=== PATIENT | female | born 1955 | race Caucasian/White ===

== ENCOUNTER 2022-02-08 11:18 | Day surgery (SDC) | payer OTHER ==
--- NOTE | 2022-02-08 10:16 | HP ---
DATE OF SURGERY: 02/08/2022 HISTORY OF PRESENT ILLNESS: The patient is a 66-year-old with no bloody stools. No change in bowel movements. No pain. She needs follow up colonoscopy. Family history negative for colon cancer. History of small polyp in the past. She is in need of follow up screening colonoscopy. PAST MEDICAL HISTORY: Hypothyroid disease, hyperlipidemia. PAST SURGICAL HISTORY: Endoscopy. Hysterectomy. Last colonoscopy six years ago. MEDICATIONS: Zocor, Synthroid. ALLERGIES: NKDA. FAMILY HISTORY: Negative for colon cancer. SOCIAL HISTORY: No smoking or alcohol abuse. REVIEW OF SYSTEMS: Fourteen systems reviewed. No chest pain or palpitations. Other systems negative or noncontributory as above and per preadmission questionnaire. PHYSICAL EXAMINATION: GENERAL: No acute distress. HEENT: Sclerae nonicteric. NECK: No JVD. CHEST: Clear to auscultation. CVS: Regular rate and rhythm. ABDOMEN: Soft. No peritoneal signs. EXTREMITIES: No significant edema. NEURO: Alert, oriented, moving extremities symmetrically. RECTAL: Deferred timed to endoscopy exam. PSYCH: Appropriate mood and affect. IMPRESSION: Prior history of polyps, in need of follow up screening colonoscopy as last colonoscopy was about six years ago. I feel she is a candidate. She was shown the risk sheet and explained the procedure in detail but not limited to bleeding or infection, risk of bowel injury or perforation possibly requiring open procedure, risk of missed or nondiagnosis or incomplete exam possibly requiring barium enema, other studies or procedures, general risk of anesthesia or sedation, risk of bowel prep but not limited to. Will proceed with outpatient follow up screening colonoscopy under MAC anesthesia.
[2022-02-08] MEDS ORDERED: Lactated Ringers 1,000 ML IV SCH (12:00)
[2022-02-08 13:54] VITALS: O2SAT 98
[2022-02-08 14:01] VITALS: BP 151/90; PULSE 66
--- NOTE | 2022-02-09 08:59 | OP ---
SURGERY DATE/TIME: 02/08/2022 1245 PREOPERATIVE DIAGNOSIS: History of polyp, need for follow up screening colonoscopy. POSTOPERATIVE DIAGNOSES: 1) ASA Class II. 2) Fair but slightly limited bowel prep. 3) Tortuous colon. 4) Small polyps, early poly versus hyperplastic lesion cecum, sigmoid and rectum. 5) Withdrawal time about seven minutes. PROCEDURES: 1) Colonoscopy to cecum. 2) Hot biopsy removal of small, very tiny early polyp versus hyperplastic lesion in the cecum. 3) Hot biopsy of small vague raised area versus hyperplasia, versus early polyp sigmoid colon. 4) Hot biopsy polypectomy small early rectal polyp versus hyperplastic lesion removed with hot biopsy forceps. SURGEON: Dr. Aldair Ricardo. ANESTHESIA: MAC. ESTIMATED BLOOD LOSS: Minimal. INDICATIONS: As noted above. Risks and benefits explained in detail but not limited to and consent obtained. DESCRIPTION OF PROCEDURE AND FINDINGS: The patient is taken to the endoscopy room. MAC anesthesia induced. After official time out and no disagreement with planned procedure, digital rectal exam did not reveal any rectal masses. There were some problems with initial scope requiring switching of the scope. The insufflation was much better on this scope. After official time out and no disagreement with planned procedure, proceeded to advance the scope up the tortuous sigmoid, descending, transverse and ascending colon. With external pressure to the cecum, appendiceal orifice and valve well visualized. Prep overall was fair but on the limited side. There was some liquidy semisolid stool limiting the exam for very small lesions. Small early 1 mm to 1.5 mm early polyp versus hyperplastic lesion removed with hot biopsy forceps with brief bursts of cautery. Good hemostasis was noted. The scope is slowly and carefully withdrawn over the next seven minutes suctioning and irrigating out the liquidy semisolid stool as well as possible. There were no signs of any large polyps, masses or obstructing lesions. She did have some mild diverticulosis otherwise small vague raised area versus early polyp or hyperplastic lesion removed with hot biopsy forceps in the sigmoid colon. The scope is then pulled back to the rectum. A 1.5 mm early polyp versus hyperplastic lesion removed with hot biopsy forceps with brief bursts of cautery. Good hemostasis was noted. There were no signs of any large polyps, masses or obstructing lesions. Given her prep quality and small early polyps versus hyperplastic lesion. If the path is benign, she might benefit from follow up in five years.
== END 2022-02-08 14:06 | disposition home or self-care (01) ==
LOC: SDC 11:18
PROVIDERS: ATTEND Surgery
DX: Z12.11 Encounter for screening for malignant neoplasm of colon (principal); Z09 Encounter for follow-up examination after completed treatment for conditions other than malignant neoplasm; K63.5 Polyp of colon; K62.1 Rectal polyp; K57.30 Diverticulosis of large intestine without perforation or abscess without bleeding; Z86.010 Personal history of colon polyps

== ENCOUNTER 2025-08-02 09:31 | Emergency (ER) | payer MEDICARE ==
--- NOTE | 2025-08-02 09:55 | ERPHSYRPT ---
- History of Present Illness Time Seen by Provider: 08/02/25 09:55 Source: patient, family Exam Limitations: no limitations Physician History: This is a 70-year-old overweight white female patient brought in by private vehicle accompanied by her spouse and is a patient of Dr. Royal with a complaint of right sided lower back pain. 2 days ago, the patient was bending and twisting and did feel a pull in this area. She did not fall or have any acute trauma. Patient has a history of sciatica in the past. Patient states it is persistent pain and pulling and tightening in that same area with intermittent muscle spasms. Patient has no urinary tract infection symptoms. She denies hematuria. She denies abdominal pain and she denies dysuria. There is no pain over her spine or in the midline. Patient has a history of hyperlipidemia and hypothyroidism. Patient denies urinary or bowel incontinence. She has no constipation. She has no numbness in her feet. Patient refuses any narcotics. She states that she prefers not to have any radiographic studies performed. Timing/Duration: day(s) (2) Method of Injury: bending, lifting, twisted Quality: sharp, stabbing, other (Spasm right lower back) Back Pain Location: lumbar spine, paraspinous muscles Back Pain Radiation: buttocks (Right side) Severity of Pain-Max: moderate Modifying Factors: Improves With: movement Associated Symptoms: denies symptoms Previous symptoms: same symptoms as today (But it has been a while) Allergies/Adverse Reactions: No Known Drug Allergies Allergy (Verified 08/02/25 09:55) Home Medications: Levothyroxine Sodium 150 Mcg [Synthroid 150 Mcg] 150 mcg PO DAILY 02/03/22 [History] Simvastatin 10 mg [Zocor 10MG] 10 mg PO DAILY 02/03/22 [History] Travel Risk - International Travel Have you traveled outside of the country in past 3 weeks: No - Emerging Infectious Disease Are you exhibiting symptoms associated with any current EIDs: No - Review of Systems Constitutional: No Symptoms Eyes: No Symptoms Ears, Nose, & Throat: No Symptoms Respiratory: No Symptoms Cardiac: No Symptoms Abdominal/Gastrointestinal: No Symptoms Genitourinary Symptoms: No Symptoms Musculoskeletal: Back Pain (Right side paraspinous muscle achiness/tenderness), No Fall, No Injury Skin: No Symptoms Neurological: No Symptoms Psychological: No Symptoms Endocrine: No Symptoms Hematologic/Lymphatic: No Symptoms Immunological/Allergic: No Symptoms All Other Systems: Reviewed and Negative - Past Medical History Pertinent Past Medical History: Yes Neurological History: No Pertinent History Cardiac History: High Cholesterol Respiratory History: No Pertinent History Endocrine Medical History: Hypothyroidism Musculoskeletal History: Osteoarthritis GI Medical History: No Pertinent History History: No Pertinent History Psycho-Social History: No Pertinent History Female Reproductive Disorders: No Pertinent History - Past Surgical History Past Surgical History: Yes Neuro Surgical History: No Pertinent History Cardiac: No Pertinent History Respiratory: No Pertinent History Gastrointestinal: No Pertinent History Musculoskeletal: No Pertinent History, Orthopedic Surgery Female Surgical History: Hysterectomy, Tubal Ligation Other Surgical History: 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,plate in left wrist - Social History Smoking Status: Never smoker - Nursing Vital Signs Nursing Vital Signs: Initial Vital Signs Temperature 97 F 08/02/25 09:32 Pulse Rate 84 08/02/25 09:32 Respiratory Rate 16 08/02/25 09:32 Blood Pressure 145/78 08/02/25 09:32 O2 Sat by Pulse Oximetry 97 08/02/25 09:32 Pain Scale Pain Intensity 8 - Physical Exam General Appearance: no apparent distress, alert, anxiety Eye Exam: PERRL/EOMI, eyes nml inspection Ears, Nose, Throat Exam: normal ENT inspection, moist mucous membranes Neck Exam: normal inspection, non-tender, supple, full range of motion Respiratory Exam: normal breath sounds, lungs clear, airway intact, No chest tenderness, No respiratory distress Gastrointestinal Exam: No tenderness Pelvic Exam: not done Rectal Exam: not done Back Exam: normal inspection, normal range of motion, muscle spasm (Right lower backlumbar region. Not centrally located), No CVA tenderness, No vertebral tenderness Extremity Exam: normal inspection, normal range of motion, pelvis stable Neurologic Exam: alert, oriented x 3, cooperative, abrasive grader helper II-XII nml as tested, nml cerebellar function, nml station & gait, sensation nml Skin Exam: normal color, warm, dry Lymphatic Exam: No adenopathy SpO2 Interpretation: normal O2 Delivery: Room Air - Course Nursing assessment & vital signs reviewed: Yes Ordered Tests: Medication Summary Discontinued Medications Generic Name Dose Route Start Last Admin Trade Name Freq PRN Reason Stop Dose Admin Methylprednisolone Sodium 0 mg 08/02/25 10:13 Succinate 125 mg/ Sterile IM 08/02/25 10:14 Water 2 ml STAT ONE Orphenadrine Citrate 60 mg 08/02/25 10:13 Orphenadrine Citrate 60 Mg/2 Ml Vial IM 08/02/25 10:14 STAT ONE - Progress Progress: improved, pain not gone completely, re-examined Progress Note: 08/02/25 10:29 My medical decision making and the assignment of low complexity of this patient's medical issue today is based on review of the patient's past medical history, review of the patient's medication list, reviewed patient drug allergy list, history present illness and physical findings on examination. The workup in this patient includes injection intramuscularly of orphenadrine and Solu- Medrol. We agreed to this management. She refuses narcotics. I offered her radiographic studies including CT scan of the lumbar spine or lumbar spine x-ray series. She declines. I do not think this is unreasonable. Differential diagnosis includes but is not limited to muscle skeletal spasm, lumbar strain, sciatica Counseled pt/family regarding: diagnosis, need for follow-up - Departure Departure Disposition: Home Clinical Impression: Right sided sciatica Condition: Stable Critical Care Time: No Referrals: ETHAN ROYAL MD [Primary Care Provider, [facility]] - Follow up/PCP as directed Additional Instructions: May apply lidocaine patch to the area for assistance and pain control. Take the occasion as prescribed. Call your primary care provider today, 08/02/2025, to make arrangements for follow-up appointment to be seen in the next 5 to 7 days or if symptoms worsen. Prescriptions: Prednisone 10 mg [Deltasone 10 mg] 10 mg PO TID #12 tablet Orphenadrine Citrate 100 mg [Norflex 100 MG Tablet] 100 mg PO BID #10 tab
[2025-08-02 10:02] VITALS: TEMP 97
[2025-08-02] MEDS ORDERED: Norflex 60 MG/2 ML ONE (10:25)
[2025-08-02] MEDS ORDERED: Sterile H2O 10 ml IJ ONE (10:25)
[2025-08-02] MEDS: Norflex 60 MG/2 ML IM ONE (10:27)
[2025-08-02] MEDS: solu-MEDROL 125 MG, Sterile H2O 10 ml 2 ML IM ONE (10:28)
[2025-08-02 10:38] VITALS: RESP 20
[2025-08-02 11:24] VITALS: BP 139/87; PULSE 70; O2SAT 96
== END 2025-08-02 11:14 | disposition home or self-care (01) ==
LOC: ED 09:31
DX: M54.31 Sciatica, right side (principal); Z79.52 Long term (current) use of systemic steroids; Z79.899 Other long term (current) drug therapy